=== PATIENT | male | born 1975 | race Caucasian/White ===

== ENCOUNTER → 2024-01-20 | Outpatient (REF) | payer BC, SELFPAY | LOC: DHSLP | PROVIDERS: ATTENDING PHYSICIAN Internal Medicine; FAMILY PHYSICIAN Nurse Practitioner Adult Health | DX: G47.30 Sleep apnea, unspecified (principal); R06.83 Snoring | CPT/HCPCS: 95800 ==

== ENCOUNTER 2024-08-06 23:00 | Emergency (ER) | payer BC, SELFPAY ==
[2024-08-06 23:00] VITALS: BMI 28.9
[2024-08-06 23:15] VITALS: BP 139/91
[2024-08-06 23:33] VITALS: BP 146/102
--- NOTE | 2024-08-06 23:54 | ED.GENMED ---
History of Present Illness
<Lubna King MD, Resident - Last Filed: 08/07/24 15:14>
General
Chief Complaint: Eye Problems
Source: patient
Exam Limitations: none
Time Seen by Provider: 08/06/24 23:32
Nursing documentation reviewed up to this point in time: agreed with
History of Present Illness
History of Present Illness:
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 He'd had a stressful day
at work and came home to his regular evening activity when he noticed blurry vision and difficulty reading parts of the screen of his phone. He describes blurry/wavy vision and left peripheral visual deficit.
Over the past 3 months he has noticed a fullness and intermittent tinnitus. He was evaluated by ENT and diagnosed with mild sensorineural hearing loss of both ears. Scheduled for MRI in mid August for further evaluation. Also noted
intermittent lower lip twitching within the same time period.
No headaches, nausea/vomiting, sensory loss, focal weakness, fever, chest pain/palpitations, recent illness. No prior head imaging history.
Past History
<Lubna King MD, Resident - Last Filed: 08/07/24 15:14>
Past History
ED Past Medical History: Arrthythmia (Paroxysmal SVT), HTN and Hypercholesterolemia
ED Past Surgical History: Orthopedic and Other (wisdom teeth)
Patient has exhibited threatening behavior?: No
Social History
Tobacco: Non-smoker
Alcohol: Occasional
Drug: None
Personal:
Living: with family
Employment: Employed
Review of Systems
<Lubna King MD, Resident - Last Filed: 08/07/24 15:14>
Review of Systems
Allergies reviewed?: Yes
Constitutional: Denies fever
Cardiac: Denies chest pain or palpitations
ABD/GI: Denies nausea or vomiting
Neurological: Reports other (no sensory loss); Denies headache or weakness
Phy Exam
<Lubna King MD, Resident - Last Filed: 08/07/24 15:14>
General Physical Exam
General Presentation: well appearing and no apparent distress
General age: appears stated age
General Skin: warm and dry
General Habitus: normal
General Mental: alert
Eye Exam
Eye Exam: PERRL, EOMI, conjunctiva normal, globe normal, visual murray normal and other (no global tenderness)
Cardiovascular Exam
Cardiovascular Exam: regular rate/rhythm, no edema, no gallop and no murmur
Heart Sounds: normal
Pulmonary Exam
Pulmonary Exam: lungs clear, no respiratory distress, no rales, no crackles, no rhonchi, no wheezing and no cough
Neurological Exam
Neurological Exam: alert, oriented x3, no motor deficits (in all extremities), no sensory deficits and speech normal
Course
<Lubna King MD, Resident - Last Filed: 08/07/24 15:14>
Orders/Labs/Results
Orders:
Orders
08/07/24 00:27
Electrocardiogram (*1) Urgent
Reason for Study: TIA/Stroke
EKG- Treatment ONCE
08/07/24 00:33
CT Head & Neck Angio W/wo IV Urgent
Comment:
Reason For Exam: blurred vision
08/07/24 00:54
Complete Blood Count/With Diff Urgent
Comprehensive Metabolic Panel Urgent
Abnormal Lab Results
08/07/24
00:54
MCH 32.3 H pg
(27.0-31.0)
Absolute Monos (auto) 1.1 H 10^3/uL
(0.1-0.6)
Lymphocytes % 14.5 L %
(20.5-51.1)
Monocytes % 13.2 H %
(1.7-9.3)
BUN 23 H mg/dl
(9-20)
08/07/24 00:54
08/07/24 00:54
Vital Signs
Initial and Last Documented VS:
Initial Vital Signs
Temp Pulse Resp BP Pulse Ox
98.2 F 81 16 139/91 99
08/06/24 23:15 08/06/24 23:15 08/06/24 23:15 08/06/24 23:15 08/06/24 23:15
Last Documented Vital Signs
Temp Pulse Resp BP Pulse Ox
98.2 F 81 16 135/84 97
08/06/24 23:15 08/06/24 23:15 08/06/24 23:15 08/07/24 02:03 08/07/24 02:15
<Cheryl Oneill MD - Last Filed: 08/07/24 02:35>
Orders/Labs/Results
Orders:
Orders
08/07/24 00:27
Electrocardiogram (*1) Urgent
Reason for Study: TIA/Stroke
EKG- Treatment ONCE
08/07/24 00:33
CT Head & Neck Angio W/wo IV Urgent
Comment:
Reason For Exam: blurred vision
08/07/24 00:54
Complete Blood Count/With Diff Urgent
Comprehensive Metabolic Panel Urgent
Abnormal Lab Results
08/07/24
00:54
MCH 32.3 H pg
(27.0-31.0)
Absolute Monos (auto) 1.1 H 10^3/uL
(0.1-0.6)
Lymphocytes % 14.5 L %
(20.5-51.1)
Monocytes % 13.2 H %
(1.7-9.3)
BUN 23 H mg/dl
(9-20)
08/07/24 00:54
08/07/24 00:54
Vital Signs
Initial and Last Documented VS:
Initial Vital Signs
Temp Pulse Resp BP Pulse Ox
98.2 F 81 16 139/91 99
08/06/24 23:15 08/06/24 23:15 08/06/24 23:15 08/06/24 23:15 08/06/24 23:15
Last Documented Vital Signs
Temp Pulse Resp BP Pulse Ox
98.2 F 81 16 135/84 97
08/06/24 23:15 08/06/24 23:15 08/06/24 23:15 08/07/24 02:03 08/07/24 02:15
<Lubna King MD, Resident - Last Filed: 08/07/24 15:14>
MDM/Problems Addressed
Differential Diagnosis Includes:
TIA, other intracranial process,
MDM/Problems Addressed:
Sudden onset of blurry vision with L-sided peripheral visual deficit lasting 20mins and resolving without treatment. No associated symptoms. Patient feels well with no symptoms at this time. Will reach out to neurology for input on best imaging
studies.
<Lubna King MD, Resident - Last Filed: 08/07/24 15:14>
*Critical Care Note
Total Time (30-74mins, 75-104mins- exclusive of procedures): Not Applicable
<Cheryl Oneill MD - Last Filed: 08/07/24 02:35>
*Radiology
Radiology exam reviewed: radiology read reviewed
*Pulse Oximetry
Patient hypoxic: no
*EKG
Interpreted by ED Provider?: Yes
Interpretation: normal
Comparison EKG: no changes
Rate: normal
Rhythm: sinus
[place]: normal axis
Interval: normal interval
QRS Pattern: normal QRS
Ischemia: no ischemia
*Book Editor Interpretation
Rate: normal
Interpretation: normal
Rhythm: sinus
<Cheryl Oneill MD - Last Filed: 08/07/24 02:35>
Update Note
Update Note:
2:30 AM patient has been asymptomatic for hours in the ED. He has a normal neurological exam. Patient's CTA appears normal. Patient encouraged to follow-up with neurology soon as possible. Patient assures me he will return with any weakness,
numbness, gait dysfunction or any visual changes.
ED Attending Note
<Lubna King MD, Resident - Last Filed: 08/07/24 15:14>
-
Portions of this chart may have been created with voice recognition software.� Occasional wrong word or��sound alike� substitutions may have occurred due to the inherent limitations of voice recognition software.
<Cheryl Oneill MD - Last Filed: 08/07/24 02:35>
ED Attending Note
Patient seen and examined by attending physician: Yes
I performed a history and physical exam of patient and discussed management with resident, I reviewed resident's note and agree with documented findings and plan of care.: Yes
ED Attending Note:
The patient appears well and comfortable. He has not had any headache or double vision at all. Patient describes bilateral blurred vision, possibly worse in his left peripheral visual field area. Symptoms lasted about 20 minutes and are now gone
completely. On exam, patient has a normal neurological exam. Visual murray are all intact. Unlikely to be atypical migraines given that he did not have a headache. Possible TIA. Case discussed with neurology, Dr. Umair Acosta, who reports this
could possibly be a cranial nerve palsy. Patient's heart sounds regular. Lungs are clear.
Discharge Plan
Departure
Patient Disposition: Home (Routine Discharge)
Date of Disposition: 08/07/24
Time of Disposition: 02:31
Patient with high blood pressure during this ER visit?: Yes
Condition: Good
Covid-19: Not Applicable
Discharge Problem:
Blurring of visual image of both eyes
Instructions: BLOOD PRESSURE
Prescriptions:
No Action
diltiazem HCl 120 MG capsule,ext.rel 24h degradable
120 mg PO DAILY Qty: 30 0RF
lisinopril 10 MG tablet
20 mg PO DAILY
rosuvastatin 5 MG tablet
5 mg PO QPM
amoxicillin-pot clavulanate 1 TABLET tablet
1 tab PO BID Qty: 20 0RF
bupropion HCl [Wellbutrin XL] 150 mg Tablet Extended Release 24 Hr
150 mg PO DAILY
Referrals:
Tang Oviedo DO [Family Provider] -
Everardo Tamez MD [Active] - (Call to see within 1 week)
Activity Restrictions/Additional Instructions:
Start 81 mg of aspirin daily. Please call and follow-up with neurology. Please return with any weakness, numbness or any further vision changes.
Interventions
Interventions:
*Risk Screen - Suicide Last Done: 08/06/24 23:35
*General Assessment Last Done: 08/06/24 23:35
*Neglect/Abuse Screening Last Done: 08/06/24 23:35
*ED COVID-19 Vaccine History Last Done: 08/06/24 23:35
*Nursing Disposition Last Done: 08/07/24 02:43
Discharge Date and Time
Discharge Date/Time: 08/07/24 02:44
Print Language: TAMAZIGHT
[2024-08-07 01:02] LABS: % Basophils 0.6 % (0-2); % Eosinophils 2.1 % (0-6); % Immature Granulocytes 0.2 % (0-0.5); % Lymphocytes 14.5 % (20.5-51.1); % Monocytes 13.2 % (1.7-9.3); % Neutrophils 69.4 % (42.2-75.2); Absolute Basophils 0.1 10^3/uL (0-0.2); Absolute Eosinophils 0.2 10^3/uL (0-0.7); Absolute Lymphocytes 1.3 10^3/uL (1.2-3.4); Absolute Monocytes 1.1 10^3/uL (0.1-0.6); Hematocrit 44.4 % (39.0-52.0); Hemoglobin 15.7 g/dL (13.0-18.0); Mean Corp Hgb Conc. 35.4 g/dL (33.0-37.0); Mean Corpuscular Hgb 32.3 pg (27.0-31.0); Mean Corpuscular Volume 91.4 fL (80.0-94.0); Mean Platelet Volume 9.9 fL (7.4-10.4); Nucleated Red Blood Cells % 0 % (-); Platelet Count 220 10^3/uL (130-400); Red Blood Cell Count 4.86 10^6/uL (4.70-6.10); White Blood Cell Count 8.6 10^3/uL (4.8-10.8)
[2024-08-07 01:35] LABS: ALT (SGPT) 46 U/L (0-50); AST (SGOT) 52 U/L (17-59); Albumin 4.7 g/dl (3.5-5.0); Alkaline Phosphatase 53 U/L (38-126); Blood Urea Nitrogen 23 mg/dl (9-20); Calcium 10.1 mg/dl (8.4-10.2); Carbon Dioxide 26 mmol/L (22-30); Chloride 99 mmol/L (98-107); Estimated Creatinine Clearance 91 ml/min; Glucose 92 mg/dl (70-99); Potassium 4.4 mmol/L (3.5-5.1); Sodium 137 mmol/L (135-145); Total Bilirubin 0.6 mg/dl (0.2-1.3); Total Protein 7.1 g/dl (6.3-8.2); eGFR > 60.00
[2024-08-07 02:03] VITALS: BP 135/84
== END 2024-08-07 02:44 | disposition home or self-care (01) ==
LOC: EMR 23:00
PROVIDERS: EMERGENCY PHYSICIAN Emergency Medicine; FAMILY PHYSICIAN Family Medicine
DX: H53.8 Other visual disturbances (principal); I10 Essential (primary) hypertension; I47.10 Supraventricular tachycardia, unspecified; E78.00 Pure hypercholesterolemia, unspecified
CPT/HCPCS: 99284; 70496; 70498; 80053; 85025; 93005; Q9967

== ENCOUNTER 2024-11-10 06:41 | Emergency (ER) | payer BC, SELFPAY ==
[2024-11-10 06:42] VITALS: BP 128/100
[2024-11-10 07:05] LABS: % Basophils 0.2 % (0-2); % Eosinophils 0.6 % (0-6); % Immature Granulocytes 2.5 % (0-0.5); % Lymphocytes 15.7 % (20.5-51.1); % Monocytes 9.7 % (1.7-9.3); % Neutrophils 71.3 % (42.2-75.2); Absolute Eosinophils 0.1 10^3/uL (0-0.7); Absolute Immature Granulocytes 0.3 10^3/uL (0-0.05); Absolute Lymphocytes 1.7 10^3/uL (1.2-3.4); Absolute Neutrophils 7.5 10^3/uL (1.4-6.5); Hematocrit 49.5 % (39.0-52.0); Hemoglobin 17.4 g/dL (13.0-18.0); Mean Corp Hgb Conc. 35.2 g/dL (33.0-37.0); Mean Corpuscular Hgb 32.5 pg (27.0-31.0); Mean Corpuscular Volume 92.5 fL (80.0-94.0); Mean Platelet Volume 9.4 fL (7.4-10.4); Nucleated Red Blood Cells % 0 % (-); Platelet Count 222 10^3/uL (130-400); Red Blood Cell Count 5.35 10^6/uL (4.70-6.10); White Blood Cell Count 10.5 10^3/uL (4.8-10.8)
[2024-11-10 07:14] LABS: ALT (SGPT) 68 U/L (0-50); AST (SGOT) 47 U/L (17-59); Albumin 4.5 g/dl (3.5-5.0); Alkaline Phosphatase 29 U/L (38-126); Blood Urea Nitrogen 23 mg/dl (9-20); Calcium 9.5 mg/dl (8.4-10.2); Carbon Dioxide 27 mmol/L (22-30); Chloride 97 mmol/L (98-107); Glucose 103 mg/dl (70-99); Potassium 4.6 mmol/L (3.5-5.1); Sodium 132 mmol/L (135-145); Total Bilirubin 1.2 mg/dl (0.2-1.3); Total Protein 7.2 g/dl (6.3-8.2); eGFR > 60.00
[2024-11-10 07:29] LABS: Troponin I 0.039 ng/ml
--- NOTE | 2024-11-10 08:07 | ED.GENMED ---
History of Present Illness
General
Chief Complaint: Heart Rate Problem
Source: patient
Exam Limitations: none
Time Seen by Provider: 11/10/24 08:06
History of Present Illness
History of Present Illness:
49-year-old male irregular heartbeat started late last evening. He is sure it went into this last evening. Actually had an EKG in the cardiology office yesterday day for preop neck surgery. No chest pain or shortness of breath. No exertional
symptoms. Remote history of irregular heartbeat that was never caught.
Past History
Past History
ED Past Medical History: Arrthythmia (Paroxysmal SVT), HTN and Hypercholesterolemia
ED Past Surgical History: Orthopedic and Other (wisdom teeth)
Patient has exhibited threatening behavior?: No
Social History
Tobacco: Non-smoker
Alcohol: Occasional
Drug: None
Personal:
Living: with family
Employment: Employed
Phy Exam
Physical Exam
Physical Exam:
GENERAL: Alert and oriented in no apparent distress
EYE: Orbits normal.
NECK: Supple, no significant adenopathy.
ENT: Pharynx without erythema
CARDIAC: Irregular irregular. No murmur
LUNGS: Clear breath sounds,normal
ABDOMEN: Soft, without focal tenderness or distention
NEUROLOGICAL: Alert and oriented , grossly non-focal
SKIN: Warm and dry, no rash or lesion, no discoloration, skin intact.
MUSCULOSKELETAL: No edema,no deformity.Good color
PSYCH: Normal and appropriate interaction.
Scores
[id number] Score for Afib Stroke Risk
Age in Years (65=0, 65-74=1, >/=75=2): <65
Sex (Female=+1): Male
Congestive Heart Failure History (Yes=+1): No
Hypertension History (Yes=+1): Yes
Stroke/TIA/Thromboembolism History (Yes=+2): No
Vascular Disease History (Yes=+1): No
Diabetes Mellitus (Yes=+1): No
Score: 1
Anticoagulation Recommendations: Consider anticoagulation (as validated in nonvalvular fib)
Course
Orders/Labs/Results
Orders:
Orders
11/10/24 06:45
Electrocardiogram (*1) Urgent
Reason for Study: Palpitations
11/10/24 06:46
EKG- Treatment ONCE
11/10/24 06:54
Complete Blood Count/With Diff Urgent
Troponin I Urgent
11/10/24 06:55
Comprehensive Metabolic Panel Urgent
Abnormal Lab Results
11/10/24 11/10/24
06:54 06:55
MCH 32.5 H pg
(27.0-31.0)
Abs Immat Gran (auto) 0.3 H 10^3/uL
(0-0.05)
Absolute Neuts (auto) 7.5 H 10^3/uL
(1.4-6.5)
Absolute Monos (auto) 1.0 H 10^3/uL
(0.1-0.6)
Immature Gran % 2.5 H %
(0-0.5)
Lymphocytes % 15.7 L %
(20.5-51.1)
Monocytes % 9.7 H %
(1.7-9.3)
Sodium 132 L mmol/L
(135-145)
Chloride 97 L mmol/L
(98-107)
BUN 23 H mg/dl
(9-20)
Glucose 103 H mg/dl
(70-99)
ALT 68 H U/L
(0-50)
Alkaline Phosphatase 29 L U/L
(38-126)
Troponin I 0.039 H* ng/ml
11/10/24 06:54
11/10/24 06:55
Vital Signs
Initial and Last Documented VS:
Initial Vital Signs
Temp Pulse Resp BP Pulse Ox
98.1 F 88 16 128/100 100
11/10/24 06:42 11/10/24 06:42 11/10/24 06:42 11/10/24 06:42 11/10/24 06:42
Last Documented Vital Signs
Temp Pulse Resp BP Pulse Ox
98.1 F 92 16 143/76 98
11/10/24 06:42 11/10/24 09:09 11/10/24 09:09 11/10/24 09:09 11/10/24 09:09
MDM/Problems Addressed
Differential Diagnosis Includes:
Patient in rate controlled atrial fibrillation. Clinically stable and nontoxic. Nothing to support underlying CAD. Troponin top normal again no symptoms consistent with ischemic issues. Main decision is cardioversion versus no cardioversion with
impending surgery. Will talk to cardiology to decide a plan
*Pulse Oximetry
Patient hypoxic: no
*EKG
Interpretation: abnormal
Comparison EKG: changes noted
Heart Rate: 87
Rate: normal
Rhythm: a-fib
[place]: normal axis
Interval: normal interval
QRS Pattern: normal QRS
Ischemia: no ischemia
*Critical Care Note
Total Time (30-74mins, 75-104mins- exclusive of procedures): Not Applicable
Update Note
Update Note:
0845. Discussed with cardiology. Very rate controlled stable atrial fibrillation. No reason at this time for repeating the troponin. He has no ischemic symptoms. Cardiology felt better not to cardiovert given his stability and that this would
delay surgery. Discussed at length with the patient. He will follow-up with the surgeon and cardiology
ED Attending Note
-
Portions of this chart may have been created with voice recognition software.� Occasional wrong word or��sound alike� substitutions may have occurred due to the inherent limitations of voice recognition software.
Discharge Plan
Departure
Patient Disposition: Home (Routine Discharge)
Date of Disposition: 11/10/24
Time of Disposition: 08:45
Patient with high blood pressure during this ER visit?: Yes
Discharge Problem:
Paroxysmal atrial fibrillation
Instructions: Atrial Fibrillation (DC), BLOOD PRESSURE
Prescriptions:
No Action
diltiazem HCl 120 MG capsule,ext.rel 24h degradable
120 mg PO DAILY Qty: 30 0RF
lisinopril 10 MG tablet
20 mg PO DAILY
rosuvastatin 5 MG tablet
5 mg PO QPM
amoxicillin-pot clavulanate 1 TABLET tablet
1 tab PO BID Qty: 20 0RF
bupropion HCl [Wellbutrin XL] 150 mg Tablet Extended Release 24 Hr
150 mg PO DAILY
Referrals:
Tang Oviedo, DO [Family Provider] -
Activity Restrictions/Additional Instructions:
As we discussed, call the driver guard and surgeon for close follow-up.
Interventions
Interventions:
*Risk Screen - Suicide Last Done: 11/10/24 06:42
*General Assessment Last Done: 11/10/24 06:42
*Neglect/Abuse Screening Last Done: 11/10/24 06:42
*ED COVID-19 Vaccine History Last Done: 11/10/24 06:42
*Nursing Disposition Last Done: 11/10/24 09:09
ED- Cardiac Assessment Last Done: 11/10/24 09:08
ED- Pulmonary Assessment Last Done: 11/10/24 09:08
Discharge Date and Time
Discharge Date/Time: 11/10/24 09:11
Print Language: [place] CITIZ[place]
[2024-11-10 09:09] VITALS: BP 143/76
== END 2024-11-10 09:11 | disposition home or self-care (01) ==
LOC: EMR 06:41
PROVIDERS: EMERGENCY PHYSICIAN Emergency Medicine; FAMILY PHYSICIAN Family Medicine
DX: I48.0 Paroxysmal atrial fibrillation (principal); I10 Essential (primary) hypertension; E78.00 Pure hypercholesterolemia, unspecified
CPT/HCPCS: 99284; 80053; 84484; 85025; 93005

== ENCOUNTER 2024-11-24 00:39 | Emergency (ER) | payer BC, SELFPAY ==
[2024-11-24 00:44] VITALS: BP 138/96
[2024-11-24 01:34] LABS: % Basophils 0.2 % (0-2); % Eosinophils 1.8 % (0-6); % Immature Granulocytes 0.4 % (0-0.5); % Lymphocytes 16.9 % (20.5-51.1); % Monocytes 15.3 % (1.7-9.3); % Neutrophils 65.4 % (42.2-75.2); Absolute Eosinophils 0.1 10^3/uL (0-0.7); Absolute Lymphocytes 0.8 10^3/uL (1.2-3.4); Absolute Monocytes 0.8 10^3/uL (0.1-0.6); Absolute Neutrophils 3.2 10^3/uL (1.4-6.5); Hematocrit 45.7 % (39.0-52.0); Hemoglobin 15.8 g/dL (13.0-18.0); Mean Corp Hgb Conc. 34.6 g/dL (33.0-37.0); Mean Corpuscular Hgb 31.3 pg (27.0-31.0); Mean Corpuscular Volume 90.5 fL (80.0-94.0); Nucleated Red Blood Cells % 0 % (-); Platelet Count 158 10^3/uL (130-400); Red Blood Cell Count 5.05 10^6/uL (4.70-6.10); Red Cell Dist. Width 13.2 % (11.5-14.5)
[2024-11-24 01:57] LABS: ALT (SGPT) 63 U/L (0-50); AST (SGOT) 49 U/L (17-59); Albumin 4.3 g/dl (3.5-5.0); Alkaline Phosphatase 34 U/L (38-126); Blood Urea Nitrogen 24 mg/dl (9-20); Calcium 9.3 mg/dl (8.4-10.2); Carbon Dioxide 28 mmol/L (22-30); Chloride 94 mmol/L (98-107); Glucose 100 mg/dl (70-99); Potassium 4.5 mmol/L (3.5-5.1); Sodium 131 mmol/L (135-145); Total Bilirubin 0.4 mg/dl (0.2-1.3); eGFR > 60.00
--- NOTE | 2024-11-24 03:37 | ED.GENMED ---
History of Present Illness
General
Chief Complaint: Abdominal Pain
Source: patient and spouse
Exam Limitations: none
Time Seen by Provider: 11/24/24 03:28
Nursing documentation reviewed up to this point in time: agreed with
History of Present Illness
History of Present Illness:
This is a 49-year-old gentleman who underwent anterior cervical fusion 6 days ago. He states he had been doing relatively well postoperatively but developed a URI over the weekend, his children had similar URI. He noted low-grade fever, cough,
mild sore throat. Cough and fever and sore throat resolved after 2 days, he was feeling well throughout the day yesterday, November 23 but then this evening developed left lower quadrant discomfort, somewhat mild but persistent and similar to
previous episode of diverticulitis he suffered in 2021. Low-grade fever that he had over the weekend has since resolved. He denies nausea or vomiting. He has been moving his bowels fairly normally. He does admit to mildly loose stool yesterday
and has been taking Colace while taking oxycodone for postop pain.
He denies dysuria urgency or hematuria, denies back nor flank pain.
Past History
Past History
ED Past Medical History: Arrthythmia (Paroxysmal SVT; 1 episode of paroxysmal M-svk-hxfswxriurlsy converted to normal sinus rhythm), HTN, Hypercholesterolemia and Other (Diverticulitis)
ED Past Surgical History: Orthopedic (Cervical discectomy October 2024) and Other (wisdom teeth)
Patient has exhibited threatening behavior?: No
Social History
Tobacco: Non-smoker
Alcohol: Occasional
Drug: None
Personal:
Living: with family
Employment: Employed
Family History
Family History: Other (Noncontributory)
Phy Exam
Physical Exam
Physical Exam:
GENERAL: 49-year-old male appears his stated age, awake and alert, pleasant, appears in no acute distress. is accompanying. He is afebrile. Vital signs within normal limits.
EYE: pupils equal and reactive. anicteric
NECK: Steri-Strips intact over dry and intact anterior lower cervical incision. Mild local tenderness to palpation but no soft tissue swelling, no erythema. No adenopathy.
ENT: posterior pharynx is clear, oral mucosa is moist. No rhinorrhea.
CARDIAC: Regular rate and rhythm. no murmur.
LUNGS: Clear breath sounds bilaterally, no acute respiratory distress, no wheezes/rales/rhonchi
ABDOMEN: Soft, nondistended, minimal pinpoint tenderness with deep palpation only to the left lateral mid abdomen, no r/g, no cvat. normoactive BS.
NEUROLOGICAL: Alert and oriented x3, no focal neuro deficits. Gait is steady.
SKIN: Warm and dry, normal color, skin intact. No rash.
MUSCULOSKELETAL: No C/C/E. peripheral pulses are full and equal b/l. No palpable tenderness.
PSYCH: Normal and appropriate interaction.
Course
Orders/Labs/Results
Orders:
Orders
11/24/24 01:28
CMP [Comprehensive Metabolic Panel] Urgent
Complete Blood Count/With Diff Urgent
11/24/24 03:37
CT Abd/pelvis W Iv Cont Urgent
Comment:
Reason For Exam: LLQ abd pain, hx of diverticulitis
11/24/24 04:27
Urinalysis Reflex To Culture Urgent
Date Specimen was Collected: 11/24/24
Time Specimen was Collected: 04:25
Abnormal Lab Results
11/24/24
01:28
MCH 31.3 H pg
(27.0-31.0)
Absolute Lymphs (auto) 0.8 L 10^3/uL
(1.2-3.4)
Absolute Monos (auto) 0.8 H 10^3/uL
(0.1-0.6)
Lymphocytes % 16.9 L %
(20.5-51.1)
Monocytes % 15.3 H %
(1.7-9.3)
Sodium 131 L mmol/L
(135-145)
Chloride 94 L mmol/L
(98-107)
BUN 24 H mg/dl
(9-20)
Glucose 100 H mg/dl
(70-99)
ALT 63 H U/L
(0-50)
Alkaline Phosphatase 34 L U/L
(38-126)
11/24/24 01:28
11/24/24 01:28
Vital Signs
Initial and Last Documented VS:
Initial Vital Signs
Temp Pulse Resp BP Pulse Ox
97.9 F 94 18 138/96 100
11/24/24 00:44 11/24/24 00:44 11/24/24 00:44 11/24/24 00:44 11/24/24 00:44
Last Documented Vital Signs
Temp Pulse Resp BP Pulse Ox
97.9 F 81 16 102/66 98
11/24/24 00:44 11/24/24 04:25 11/24/24 04:25 11/24/24 04:25 11/24/24 04:25
MDM/Problems Addressed
Differential Diagnosis Includes:
Concern for early diverticulitis, abdominal wall muscle strain, constipation, colitis. Less likely ureteric stone/UTI/pyelonephritis.
Labs are reassuringly within normal limits. Normal white blood cell count of 5 and this patient is afebrile, less convincing for diverticulitis.
Minimally elevated LFTs but improved from previous.
Will check urinalysis and check CT abdomen pelvis.
Chronic conditions affecting care: Other (Prior history of diverticulitis)
*Radiology
Radiology exam reviewed: radiology read reviewed
*Pulse Oximetry
Patient hypoxic: no
*Critical Care Note
Total Time (30-74mins, 75-104mins- exclusive of procedures): Not Applicable
Update Note
Update Note:
05:10
Patient remains well in appearance.
CAT scan shows subtle small bowel wall thickening and edema in the small bowel mesentery in the left lower quadrant which may reflect focal enteritis. There is no obstruction nor free air. There is diverticulosis without evidence of
diverticulitis. No renal nor obstructing ureteral stones.
Patient has had some loose stools which he attributed to Colace but may be reflective of a mild enteritis.
As above, labs are reassuring. No indication for antibiotics.
Recommend clear liquids, bland diet over the next few days.
Prompt follow-up with PCP for recheck.
ED Attending Note
-
Portions of this chart may have been created with voice recognition software.� Occasional wrong word or��sound alike� substitutions may have occurred due to the inherent limitations of voice recognition software.
Discharge Plan
Departure
Patient Disposition: Home (Routine Discharge)
Date of Disposition: 11/24/24
Time of Disposition: 05:09
Patient with high blood pressure during this ER visit?: No
Condition: Good
Discharge Problem:
Abdominal pain, acute, left lower quadrant, acute enteritis
Instructions: Viral gastroenteritis in adults, Clear Liquid Diet
Prescriptions:
No Action
diltiazem HCl 120 MG capsule,ext.rel 24h degradable
120 mg PO DAILY Qty: 30 0RF
lisinopril 10 MG tablet
20 mg PO DAILY
rosuvastatin 5 MG tablet
5 mg PO QPM
amoxicillin-pot clavulanate 1 TABLET tablet
1 tab PO BID Qty: 20 0RF
bupropion HCl [Wellbutrin XL] 150 mg Tablet Extended Release 24 Hr
150 mg PO DAILY
Referrals:
Tang Oviedo, DO [Family Provider] - Call in 1-3 days for appt
Interventions
Interventions:
*Risk Screen - Suicide Last Done: 11/24/24 00:44
*General Assessment Last Done: 11/24/24 02:13
*Neglect/Abuse Screening Last Done: 11/24/24 00:44
*ED COVID-19 Vaccine History Last Done: 11/24/24 02:13
GG-Aejzbo-Prnfwetqyt Assessment Last Done: 11/24/24 03:52
Discharge Date and Time
Print Language: [place]
[2024-11-24 03:52] VITALS: BMI 27.1
[2024-11-24 04:25] VITALS: BP 102/66
[2024-11-24 04:36] LABS: Urine Albumin Negative (Neg - Trace); Urine Bilirubin Negative (Negative); Urine Character Clear (Clear); Urine Color Yellow; Urine Glucose Negative (Negative); Urine Ketone Negative (Negative); Urine Leukocyte Negative (Negative); Urine Nitrite Negative (Negative); Urine Occult Blood Negative (Negative); Urine Specific Gravity 1.005 (<1.030); Urine Urobilinogen Negative (Neg - 1+)
== END 2024-11-24 05:28 | disposition home or self-care (01) ==
LOC: EMR 00:39
PROVIDERS: EMERGENCY PHYSICIAN Emergency Medicine; FAMILY PHYSICIAN Family Medicine
DX: R10.32 Left lower quadrant pain (principal); K52.9 Noninfective gastroenteritis and colitis, unspecified; I47.19 Other supraventricular tachycardia; I48.0 Paroxysmal atrial fibrillation; I10 Essential (primary) hypertension; E78.00 Pure hypercholesterolemia, unspecified
CPT/HCPCS: 99284; 74177; 80053; 81003; 85025; Q9967

== ENCOUNTER → 2025-04-04 13:16 | Outpatient (REF) | payer BC, SELFPAY | LOC: MRI 13:16 | PROVIDERS: ATTENDING PHYSICIAN Psychiatry & Neurology Neurology; FAMILY PHYSICIAN Family Medicine | DX: H53.8 Other visual disturbances (principal) | CPT/HCPCS: 70553; A9575 ==

== ENCOUNTER → 2025-06-22 12:47 | Outpatient (REF) | payer BC, SELFPAY | LOC: HWRAD 12:47 | PROVIDERS: ATTENDING PHYSICIAN Family Medicine | DX: R93.89 Abnormal findings on diagnostic imaging of other specified body structures (principal) | CPT/HCPCS: 71250 ==